=== PATIENT | male | born 1945 | race Caucasian/White ===

== ENCOUNTER 2016-08-05 17:52 | Emergency (ER) | payer MEDICARE, OTHER ==
[2016-08-05] MEDS ORDERED: Sodium Chloride 0.9% 10 ML Syringe FLUSH PRN (18:08)
[2016-08-05] MEDS ORDERED: Sodium Chloride 0.9% 1,000 ML IV ONE (18:08)
--- NOTE | 2016-08-05 18:15 | EDM.PDOC ---
ED HPI DIZZINESS - General Chief Complaint: General Stated Complaint: ear ringing, dizziness Time Seen by Provider: 08/05/16 18:03 Source of Information: Reports: Patient, EMS, EMS notes reviewed Exam Limitations: Reports: No limitations - History of Present Illness INITIAL COMMENTS - FREE TEXT/NARRATIVE: Patient was working in his wood shop in [facility]. [facility] did intercept the patient from the [facility]. Complaints include ringing in his ears and dizziness. He denies he has ever had this happen to him before. He does wear ear protection while in his shop. He DENIES SOB, chest pain, nausea, vomiting, arm, jaw, or back pain. He states he did get sweaty when he became dizzy. He has equal strength and no weakness. 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. He does endorse medical history of HTN, high cholesterol, diabetes. Current medications include metformin, lisinopril, HCTZ, and atorvastatin. Former smoker. States he smoked a pack a day for 10 years. States he has 1 beer at the end of every day. Denies any other medical history. Denies family history of early cardiac . Symptom Onset Date: 08/05/16 Timing/Duration: Reports: Minutes: (patient states episode lasted approximately 15-20 minutes) Baseline Function: Reports: ambulatory, independent Quality: Reports: lightheaded Severity: moderate Context, Dizziness: Denies: recent illness, recent infection, new medications Associated Symptoms: Reports: decreased ability to walk, off balance (patient states he needed a stick to walk to the house. denies falling or LOC). Denies : previous similar episodes - Related Data Allergies/ADRs: Allergies Allergy/AdvReac Type Severity Reaction Status Date / Time No Known Allergies Allergy Verified 08/05/16 18:25 Home Meds: Home Meds Hydrochlorothiazide 25 mg DAILY 08/05/16 [History] Lisinopril 20 mg DAILY 08/05/16 [History] atorvaSTATin [Lipitor] 10 mg DAILY 08/05/16 [History] metFORMIN HCl [Metformin HCl] 500 mg BID 08/05/16 [History] ED ROS GENERAL - Review of Systems Review Of Systems: See Below Constitutional: Reports: diaphoresis HEENT: Reports: Ear pain (ear ringing) Respiratory: Reports: No Symptoms Cardiovascular: Reports: No symptoms Endocrine: Reports: no symptoms GI/Abdominal: Reports: No symptoms : Reports: no symptoms Musculoskeletal: Reports: no symptoms Skin: Reports: no symptoms Neurological: Reports: Dizziness Psychiatric: Reports: No symptoms Hematologic/Lymphatic: Reports: no symptoms Immunologic: Reports: no symptoms Free text/narrative/comment: Duglas's only complaints include dizziness, ears ringing, and sweating during the dizziness episode. ED EXAM, DIZZINESS - Physical Exam Exam: See Below Exam Limited By: No limitations General Appearance: alert, WD/WN, no apparent distress Eye Exam: bilateral eye: EOMI, PERRL Ears: normal TMs Nose: normal inspection Throat/Mouth: Normal inspection, Normal oropharynx Head Exam: atraumatic, normocephalic Neck: normal inspection, supple, non-tender, full range of motion Respiratory/Chest: no respiratory distress, lungs clear, normal breath sounds, no accessory muscle use, chest non-tender Cardiovascular: normal peripheral pulses, regular rate, rhythm (sinus arrhythmia ) GI/Abdominal: normal bowel sounds, soft, non tender, no organomegaly Neurological: alert, normal mood/affect, normal dorsiflexion, CN II-XII intact, normal plantar flexion, normal reflexes, no motor/sensory deficits, oriented x 3 Back Exam: normal inspection Extremities: normal inspection, normal range of motion, non-tender, no pedal edema, normal capillary refill Psychiatric: normal affect, normal mood Skin Exam: Warm, Dry, Intact, Normal color, No rash Comments: Negative physical examination. Course - Orders/Labs/Meds Orders: Active Orders 24 hr Category Date Time Status EKG 12 Lead [EKG Documentation Completion] [RC] ROUTINE Care 08/05/16 18:07 Ordered Chest 2V [CR] Stat Exams 08/05/16 18:05 Ordered B-TYPE NATRIURETIC PEPTIDE,BNP [CHEM] Stat Lab 08/05/16 18:05 Ordered CBC WITH AUTO DIFF [HEME] Stat Lab 08/05/16 18:05 Ordered CK W CKMB [CHEM] Stat Lab 08/05/16 18:05 Ordered COMPREHENSIVE METABOLIC PN,CMP [CHEM] Stat Lab 08/05/16 18:05 Ordered CRP [C-REACTIVE PROTEIN] [CHEM] Stat Lab 08/05/16 18:05 Ordered INR,PT,PROTHROMBIN TIME [COAG] Stat Lab 08/05/16 18:05 Ordered TROPONIN I [CHEM] Stat Lab 08/05/16 18:05 Ordered TSH ULTRASENSITIVE [CHEM] Stat Lab 08/05/16 18:05 Ordered Sodium Chloride 0.9% [Normal Saline] 1,000 ml Med 08/05/16 18:08 Ordered IV .BOLUS Sodium Chloride 0.9% [Saline Flush] Med 08/05/16 18:08 Ordered 10 ml FLUSH ASDIRECTED PRN Saline Lock Insert [OM.PC] Routine Oth 08/05/16 18:08 Ordered Medication Orders Sodium Chloride (Normal Saline) 1,000 mls @ 999 mls/hr IV .BOLUS ONE Stop: 08/05/16 19:08 Sodium Chloride (Saline Flush) 10 ml FLUSH ASDIRECTED PRN PRN Reason: Keep Vein Open Meds: Medications Generic Name Dose Route Start Last Admin Trade Name Freq PRN Reason Stop Dose Admin Sodium Chloride 1,000 mls @ 999 mls/hr 08/05/16 18:08 Normal Saline IV 08/05/16 19:08 .BOLUS ONE Sodium Chloride 10 ml 08/05/16 18:08 Saline Flush FLUSH ASDIRECTED PRN Keep Vein Open Departure - Departure Time of Disposition: 19:46 Disposition: Home, Self-Care 01 Condition: good Clinical Impression: Near syncope, Dehydration symptoms, Tinnitus of both ears Instructions: Near-Syncope, [id number], Tinnitus, Dehydration, Adult, Easy-to -Read Additional Instructions: You need to follow up with your primary medical provider within the next week to further investigate the cause for your symptoms today. Your cardiac enzymes and EKG were negative today Your x-ray did show plaque to the aortic arch You should probable have a pumper gauger apprentice consult for an echocardiogram and stress test to determine possible cause of your cardiomegaly and investigate further your aortic plaque You also should see a neurologist to further investigate any possible causes within the brain for the near syncope episode Sometimes syncope causes are not determined. This happens in about 1/3 of the cases Increase your water intake and get more exercise Please call with any questions or concerns in the meantime - Problem List & Annotations (1) Dehydration symptoms SNOMED Code(s): 5078854 Code(s): R63.8 - OTHER SYMPTOMS AND SIGNS CONCERNING FOOD AND FLUID INTAKE Status: Acute Priority: Low Current Visit: Yes (2) Near syncope SNOMED Code(s): 898098807 Code(s): R55 - SYNCOPE AND COLLAPSE Status: Acute Priority: Low Current Visit: Yes (3) Tinnitus of both ears SNOMED Code(s): 7984017193592 Code(s): H93.13 - TINNITUS, BILATERAL Status: Acute Priority: Low Current Visit: Yes - Problem List Review Problem List Initiated/Reviewed/Updated: Yes - My Orders Last 24 Hours: My Active Orders 08/05/16 18:05 Chest 2V [CR] Stat B-TYPE NATRIURETIC PEPTIDE,BNP [CHEM] Stat CBC WITH AUTO DIFF [HEME] Stat CK W CKMB [CHEM] Stat COMPREHENSIVE METABOLIC PN,CMP [CHEM] Stat CRP [C-REACTIVE PROTEIN] [CHEM] Stat INR,PT,PROTHROMBIN TIME [COAG] Stat TROPONIN I [CHEM] Stat TSH ULTRASENSITIVE [CHEM] Stat 08/05/16 18:07 EKG 12 Lead [EKG Documentation Completion] [RC] ROUTINE 08/05/16 18:08 Sodium Chloride 0.9% [Normal Saline] 1,000 ml IV .BOLUS Sodium Chloride 0.9% [Saline Flush] 10 ml FLUSH ASDIRECTED PRN Saline Lock Insert [OM.PC] Routine - Assessment/Plan Last 24 Hours: My Active Orders 08/05/16 18:05 Chest 2V [CR] Stat B-TYPE NATRIURETIC PEPTIDE,BNP [CHEM] Stat CBC WITH AUTO DIFF [HEME] Stat CK W CKMB [CHEM] Stat COMPREHENSIVE METABOLIC PN,CMP [CHEM] Stat CRP [C-REACTIVE PROTEIN] [CHEM] Stat INR,PT,PROTHROMBIN TIME [COAG] Stat TROPONIN I [CHEM] Stat TSH ULTRASENSITIVE [CHEM] Stat 08/05/16 18:07 EKG 12 Lead [EKG Documentation Completion] [RC] ROUTINE 08/05/16 18:08 Sodium Chloride 0.9% [Normal Saline] 1,000 ml IV .BOLUS Sodium Chloride 0.9% [Saline Flush] 10 ml FLUSH ASDIRECTED PRN Saline Lock Insert [OM.PC] Routine Assessment:: Near syncope Dehydration Tinnitus Plan: You need to follow up with your primary medical provider within the next week to further investigate the cause for your symptoms today. Your cardiac enzymes and EKG were negative today Your x-ray did show plaque to the aortic arch You should probable have a pumper gauger apprentice consult for an echocardiogram and stress test to determine possible cause of your cardiomegaly and investigate further your aortic plaque You also should see a neurologist to further investigate any possible causes within the brain for the near syncope episode Sometimes syncope causes are not determined. This happens in about 1/3 of the cases Increase your water intake and get more exercise Please call with any questions or concerns in the meantime
[2016-08-05 18:54] LABS: CHLORIDE,CL 103 mmol/L (98-107); SODIUM,NA 141 mmol/L (136-145)
[2016-08-05] MEDS ORDERED: Lisinopril 20 MG Tab PO ONE (19:27)
[2016-08-06 04:03] VITALS: BP 191/76
== END 2016-08-05 20:00 | disposition home or self-care (01) ==
LOC: MERGE 17:52 → VM.ED 17:52
DX: R55 Syncope and collapse (principal); H93.13 Tinnitus, bilateral; E86.0 Dehydration; Z79.82 Long term (current) use of aspirin; Z79.899 Other long term (current) drug therapy
CPT/HCPCS: 36415; 71020; 80053; 82550; 82553; 83880; 84443; 84484; 85025; 85610; 86140; 93005; 96360; 99285; A9270; J7030; 99284-GF